=== PATIENT | male | born 1970 | race Caucasian/White ===

== ENCOUNTER 2017-07-28 08:36 | Inpatient (IN) | payer OTHER ==
[2017-07-28 08:41] VITALS: BMI 25.0
[2017-07-28] MEDS ORDERED: NICOTINE POLACRILEX 2 MG GUM BUC PRN (10:56)
[2017-07-28] MEDS ORDERED: guaiFENesin/D-METHORPHAN HB 10 ML UNIT-DOSE CUPS PO PRN (10:56)
[2017-07-28] MEDS ORDERED: P-EPHED 60MG/TRIPROLIDI 2.5MG TABLET PO PRN (10:56)
[2017-07-28] MEDS ORDERED: chlordiazePOXIDE HCL 25 MG CAPSULE PO PRN (10:56)
[2017-07-28] MEDS ORDERED: MAGNESIUM CITRATE 300 ML BOTTLE PO PRN (10:56)
[2017-07-28] MEDS ORDERED: LOPERAMIDE HCL 2 MG CAPSULE PO PRN (10:56)
[2017-07-28] MEDS ORDERED: MAG HYDROX/AL HYDROX/SIMETH 30 ML UNIT-DOSE CUP PO PRN (10:56)
[2017-07-28] MEDS ORDERED: ACETAMINOPHEN 325 MG TABLET (FP) PO PRN (10:56)
[2017-07-28] MEDS ORDERED: MAGNESIUM HYDROX 2400MG/30ML ORAL SUSPENSION 30 ML CUP PO PRN (10:56)
[2017-07-28] MEDS ORDERED: chlordiazePOXIDE HCL 25 MG CAPSULE PO ONE (10:56)
[2017-07-28] MEDS ORDERED: IBUPROFEN 400 MG TABLET (FP) PO PRN (10:56)
[2017-07-28] MEDS ORDERED: MENTHOL/PHENOL 1 EACH UD MM PRN (10:56)
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
[2017-07-28] MEDS: GABAPENTIN 300 MG CAPSULE (FP) PO SCH ×2 (14:45→22:37)
[2017-07-28] MEDS: chlordiazePOXIDE HCL 25 MG CAPSULE PO SCH ×3 (14:46→22:37)
[2017-07-28] MEDS: NICOTINE 21 MG/24 HOURS TOPICAL PATCH TD SCH (14:46)
[2017-07-28 19:12] LABS: URINE APPEARANCE CLEAR; URINE BILIRUBIN NEGATIVE (NEGATIVE); URINE BLOOD 1+ (NEGATIVE); URINE COLOR YELLOW; URINE GLUCOSE (UA) NEGATIVE (NEGATIVE); URINE KETONE NEGATIVE (NEGATIVE); URINE LEUK ESTERASE TRACE (NEGATIVE); URINE NITRITE NEGATIVE (NEGATIVE); URINE PROTEIN NEGATIVE (NEGATIVE); URINE UROBILINOGEN NEGATIVE mg/dL (0.2-1.0)
[2017-07-28 19:15] LABS: URINE MUCUS RARE; URINE RBC <1 /hpf (0-3); URINE WBC 13 /hpf (3-5)
[2017-07-28 21:15] LABS: URINE LEUK ESTERASE NEGATIVE (NEGATIVE)
[2017-07-28] MEDS: hydrOXYzine PAMOATE 50 MG CAPSULE (FP) PO PRN (22:37)
[2017-07-28] MEDS: THIAMINE HCL 100 MG TABLET (FP) PO SCH (22:37)
[2017-07-29] MEDS: chlordiazePOXIDE HCL 25 MG CAPSULE PO SCH ×4 (05:29→22:44)
[2017-07-29] MEDS: GABAPENTIN 300 MG CAPSULE (FP) PO SCH ×3 (05:32→22:44)
[2017-07-29 10:42] LABS: MCH 30.8 pg (25.7-33.7); MCHC 32.9 g/dl (32.0-35.9); MEAN CELL VOLUME 93.5 fl (80-96); MEAN PLT VOLUME 9.6 fl (7.5-11.1); PLATELET COUNT 128 K/MM3 (134-434); RDW 14.1 % (11.9-15.9)
[2017-07-29] MEDS: PRENATAL VITAMINS W/ FOLIC ACID TABLET (FP) PO SCH (10:47)
[2017-07-29] MEDS: NICOTINE 21 MG/24 HOURS TOPICAL PATCH TD SCH (10:47)
[2017-07-29 10:59] LABS: ALBUMIN 3.6 g/dl (3.4-5.0); ANION GAP 7 (8-16); CALCIUM 8.5 mg/dL (8.5-10.1); CO2 31 mmol/L (21-32); GLUCOSE,RANDOM 97 mg/dL (74-106)
[2017-07-29 11:03] LABS: ALK PHOS 126 U/L (45-117); BILIRUBIN,TOTAL 0.8 mg/dL (0.2-1.0); CREATININE 0.6 mg/dL (0.7-1.3); SGOT/AST 104 U/L (15-37); SGPT/ALT 111 U/L (12-78); TOT PROT 6.6 g/dl (6.4-8.2)
[2017-07-29 11:40] LABS: HIV 1 & 2 AB NEGATIVE; HIV 1 AGp24 NEGATIVE
[2017-07-29] MEDS ORDERED: POTASSIUM CHLORIDE TABS 20 MEQ TABLET.ER (FP) PO ONE (12:46)
--- NOTE | 2017-07-29 12:48 | PN ---
S CIWA - CIWA Score Nausea/Vomitin-No Nausea/No Vomiting Muscle Tremors: 4-Moderate,w/Arms Extend Anxiety: 3 Agitation: 3 Paroxysmal Sweats: 3 Orientation: 0-Oriented Tacttile Disturbances: 2-Mild Itch/Numbness/Burn Auditory Disturbances: 0-None Visual Disturbances: 0-None Headache: 3-Moderate CIWA-Ar Total Score: 18 BHS Progress Note (SOAP) Subjective: Diarrhea, Tremors, H/A, Sweating. Objective: PT. A & O X 3. NO ACUTE DISTRESS. PT. DENIES CHEST PAIN. 07/29/17 12:44 Vital Signs Temperature 98.1 F 07/29/17 09:28 Pulse Rate 67 07/29/17 09:28 Respiratory Rate 20 07/29/17 09:28 Blood Pressure 139/87 07/29/17 09:28 O2 Sat by Pulse Oximetry (%) Laboratory Tests 07/28/17 07/29/17 07/29/17 18:00 07:00 07:00 WBC 6.0 RBC 4.23 Hgb 13.0 Hct 39.6 MCV 93.5 MCH 30.8 MCHC 32.9 RDW 14.1 Plt Count 128 L MPV 9.6 Sodium Potassium Chloride Carbon Dioxide Anion Gap BUN Creatinine Creat Clearance w eGFR Random Glucose Calcium Total Bilirubin AST ALT Alkaline Phosphatase Total Protein Albumin Urine Color Yellow Urine Appearance Clear Urine pH 5.0 Ur Specific [place] 1.019 Urine Protein Negative Urine Glucose (UA) Negative Urine Ketones Negative Urine Blood 1+ H Urine Nitrite Negative Urine Bilirubin Negative Urine Urobilinogen Negative Ur Leukocyte Esterase Negative Urine WBC (Auto) 13 Urine RBC (Auto) <1 Ur Epithelial Cells Rare Urine Mucus Rare RPR Titer HIV 1&2 Antibody Screen Negative HIV P24 Antigen Negative 07/29/17 07/29/17 07:00 07:00 WBC RBC Hgb Hct MCV MCH MCHC RDW Plt Count MPV Sodium 138 Potassium 3.1 L Chloride 100 Carbon Dioxide 31 Anion Gap 7 L BUN 13 Creatinine 0.6 L Creat Clearance w eGFR > 60 Random Glucose 97 Calcium 8.5 Total Bilirubin 0.8 AST 104 H ALT 111 H Alkaline Phosphatase 126 H Total Protein 6.6 Albumin 3.6 Urine Color Urine Appearance Urine pH Ur Specific [place] Urine Protein Urine Glucose (UA) Urine Ketones Urine Blood Urine Nitrite Urine Bilirubin Urine Urobilinogen Ur Leukocyte Esterase Urine WBC (Auto) Urine RBC (Auto) Ur Epithelial Cells Urine Mucus RPR Titer Nonreactive HIV 1&2 Antibody Screen HIV P24 Antigen LABS NOTED. Assessment: 07/29/17 12:44 WITHDRAWAL SYMPTOMS. HYPOKALEMIA. 07/29/17 12:48 Plan: CONTINUE DETOX. K-DUR, 20 MEQ PO X 1 NOW, THEN 20 MEQ PO BID AFTER. REPEAT UA AND HEPATIC FUNCTION PANEL (07/31/2017) FOR ADMISSION ABNORMALITIES. INCREASE DAILY PO FLUID INTAKE. PRN IMMODIUM FOR DIARRHEA.
--- NOTE | 2017-07-29 15:14 | EKG ---
Test Reason : Blood Pressure : / mmHG Vent. Rate : 064 BPM Atrial Rate : 064 BPM P-R Int : 144 ms QRS Dur : 114 ms QT Int : 424 ms P-R-T Axes : 009 068 058 degrees QTc Int : 437 ms NORMAL SINUS RHYTHM NORMAL ECG NO PREVIOUS ECGS AVAILABLE Confirmed by ABDON MCKEON MD ([id number]) on 07/29/2017 3:13:40 PM Referred By: Confirmed By:ABDON MCKEON MD
[2017-07-29] MEDS: POTASSIUM CHLORIDE TABS 20 MEQ TABLET.ER (FP) PO SCH (17:37)
[2017-07-29] MEDS: THIAMINE HCL 100 MG TABLET (FP) PO SCH (22:44)
[2017-07-29] MEDS: hydrOXYzine PAMOATE 50 MG CAPSULE (FP) PO PRN (22:44)
[2017-07-30] MEDS: GABAPENTIN 300 MG CAPSULE (FP) PO SCH ×3 (05:37→22:12)
[2017-07-30] MEDS: chlordiazePOXIDE HCL 25 MG CAPSULE PO SCH (05:37)
--- NOTE | 2017-07-30 09:04 | PN ---
[facility] CIWA - CIWA Score Nausea/Vomitin-No Nausea/No Vomiting Muscle Tremors: 3 Anxiety: 3 Agitation: 3 Paroxysmal Sweats: 1-Minimal Palms Moist Orientation: 0-Oriented Tacttile Disturbances: 0-None Auditory Disturbances: 0-None Visual Disturbances: 0-None Headache: 0-None Present CIWA-Ar Total Score: 10 S Progress Note (SOAP) Subjective: tremor anxiety agitation sweating Objective: 07/30/17 09:05 Vital Signs Temperature 97.6 F 07/30/17 06:35 Pulse Rate 59 L 07/30/17 06:35 Respiratory Rate 20 07/30/17 06:35 Blood Pressure 124/78 07/30/17 06:35 O2 Sat by Pulse Oximetry (%) Laboratory Last Values WBC 6.0 K/mm3 (4.0-10.0) 07/29/17 07:00 RBC 4.23 M/mm3 (4.00-5.60) 07/29/17 07:00 Hgb 13.0 GM/dL (11.7-16.9) 07/29/17 07:00 Hct 39.6 % (35.4-49) 07/29/17 07:00 MCV 93.5 fl (80-96) 07/29/17 07:00 MCH 30.8 pg (25.7-33.7) 07/29/17 07:00 MCHC 32.9 g/dl (32.0-35.9) 07/29/17 07:00 RDW 14.1 % (11.9-15.9) 07/29/17 07:00 Plt Count 128 K/MM3 (134-434) L 07/29/17 07:00 MPV 9.6 fl (7.5-11.1) 07/29/17 07:00 Sodium 138 mmol/L (136-145) 07/29/17 07:00 Potassium 3.1 mmol/L (3.5-5.1) L 07/29/17 07:00 Chloride 100 mmol/L (98-107) 07/29/17 07:00 Carbon Dioxide 31 mmol/L (21-32) 07/29/17 07:00 Anion Gap 7 (8-16) L 07/29/17 07:00 BUN 13 mg/dL (7-18) 07/29/17 07:00 Creatinine 0.6 mg/dL (0.7-1.3) L 07/29/17 07:00 Creat Clearance w eGFR > 60 (>60) 07/29/17 07:00 Random Glucose 97 mg/dL (74-106) 07/29/17 07:00 Calcium 8.5 mg/dL (8.5-10.1) 07/29/17 07:00 Total Bilirubin 0.8 mg/dL (0.2-1.0) 07/29/17 07:00 AST 104 U/L (15-37) H 07/29/17 07:00 ALT 111 U/L (12-78) H 07/29/17 07:00 Alkaline Phosphatase 126 U/L (45-117) H 07/29/17 07:00 Total Protein 6.6 g/dl (6.4-8.2) 07/29/17 07:00 Albumin 3.6 g/dl (3.4-5.0) 07/29/17 07:00 Urine Color Yellow 07/28/17 18:00 Urine Appearance Clear 07/28/17 18:00 Urine pH 5.0 (5.0-8.0) 07/28/17 18:00 Ur Specific [place] 1.019 (1.001-1.035) 07/28/17 18:00 Urine Protein Negative (NEGATIVE) 07/28/17 18:00 Urine Glucose (UA) Negative (NEGATIVE) 07/28/17 18:00 Urine Ketones Negative (NEGATIVE) 07/28/17 18:00 Urine Blood 1+ (NEGATIVE) H 07/28/17 18:00 Urine Nitrite Negative (NEGATIVE) 07/28/17 18:00 Urine Bilirubin Negative (NEGATIVE) 07/28/17 18:00 Urine Urobilinogen Negative mg/dL (0.2-1.0) 07/28/17 18:00 Ur Leukocyte Esterase Negative (NEGATIVE) 07/28/17 18:00 Urine WBC (Auto) 13 /hpf (3-5) 07/28/17 18:00 Urine RBC (Auto) <1 /hpf (0-3) 07/28/17 18:00 Ur Epithelial Cells Rare /HPF (FEW) 07/28/17 18:00 Urine Mucus Rare 07/28/17 18:00 RPR Titer Nonreactive (NONREACTIVE) 07/29/17 07:00 HIV 1&2 Antibody Screen Negative 07/29/17 07:00 HIV P24 Antigen Negative 07/29/17 07:00 lab noted Assessment: 07/30/17 09:05 withdrawal sx Plan: continue detox
[2017-07-30 10:33] LABS: URINE APPEARANCE CLEAR; URINE BILIRUBIN NEGATIVE (NEGATIVE); URINE BLOOD NEGATIVE (NEGATIVE); URINE COLOR STRAW; URINE GLUCOSE (UA) 1+ (NEGATIVE); URINE KETONE NEGATIVE (NEGATIVE); URINE LEUK ESTERASE TRACE (NEGATIVE); URINE NITRITE NEGATIVE (NEGATIVE); URINE PROTEIN NEGATIVE (NEGATIVE); URINE UROBILINOGEN NEGATIVE mg/dL (0.2-1.0)
[2017-07-30] MEDS: PRENATAL VITAMINS W/ FOLIC ACID TABLET (FP) PO SCH (10:48)
[2017-07-30] MEDS: NICOTINE 21 MG/24 HOURS TOPICAL PATCH TD SCH (10:48)
[2017-07-30] MEDS: POTASSIUM CHLORIDE TABS 20 MEQ TABLET.ER (FP) PO SCH ×2 (10:48→17:02)
[2017-07-30] MEDS: chlordiazePOXIDE 5 MG CAPSULE PO SCH ×3 (10:49→22:12)
[2017-07-30 11:03] LABS: URINE RBC 1 /hpf (0-3); URINE WBC 11 /hpf (3-5)
[2017-07-30 18:41] LABS: URINE LEUK ESTERASE TRACE (NEGATIVE)
[2017-07-30] MEDS: hydrOXYzine PAMOATE 50 MG CAPSULE (FP) PO PRN (20:00)
[2017-07-30] MEDS: THIAMINE HCL 100 MG TABLET (FP) PO SCH (22:12)
[2017-07-31] MEDS: GABAPENTIN 300 MG CAPSULE (FP) PO SCH ×3 (06:08→22:12)
[2017-07-31] MEDS: chlordiazePOXIDE 5 MG CAPSULE PO SCH (06:08)
[2017-07-31 10:29] LABS: ALK PHOS 193 U/L (45-117); BILIRUBIN,DIRECT < 0.2 mg/dL (0.0-0.2); BILIRUBIN,TOTAL 0.5 mg/dL (0.2-1.0); SGOT/AST 396 U/L (15-37); TOT PROT 7.6 g/dl (6.4-8.2)
[2017-07-31] MEDS: PRENATAL VITAMINS W/ FOLIC ACID TABLET (FP) PO SCH (10:42)
[2017-07-31] MEDS: chlordiazePOXIDE HCL 10 MG CAPSULE PO SCH ×3 (10:42→22:12)
[2017-07-31] MEDS: POTASSIUM CHLORIDE TABS 20 MEQ TABLET.ER (FP) PO SCH ×2 (10:42→17:29)
[2017-07-31] MEDS: NICOTINE 21 MG/24 HOURS TOPICAL PATCH TD SCH (10:43)
[2017-07-31 10:45] LABS: SGPT/ALT 454 U/L (12-78)
--- NOTE | 2017-07-31 12:10 | PN ---
BHS Progress Note (SOAP) Subjective: ANXIETY,SWEATS,TREMORS,MUSCLE ACHES, INTERMITTENT SLEEP. Objective: 07/31/17 12:13 Vital Signs Temperature 97.2 F L 07/31/17 09:55 Pulse Rate 89 07/31/17 09:55 Respiratory Rate 18 07/31/17 09:55 Blood Pressure 113/72 07/31/17 09:55 O2 Sat by Pulse Oximetry (%) Laboratory Last Values WBC 6.0 K/mm3 (4.0-10.0) 07/29/17 07:00 RBC 4.23 M/mm3 (4.00-5.60) 07/29/17 07:00 Hgb 13.0 GM/dL (11.7-16.9) 07/29/17 07:00 Hct 39.6 % (35.4-49) 07/29/17 07:00 MCV 93.5 fl (80-96) 07/29/17 07:00 MCH 30.8 pg (25.7-33.7) 07/29/17 07:00 MCHC 32.9 g/dl (32.0-35.9) 07/29/17 07:00 RDW 14.1 % (11.9-15.9) 07/29/17 07:00 Plt Count 128 K/MM3 (134-434) L 07/29/17 07:00 MPV 9.6 fl (7.5-11.1) 07/29/17 07:00 Sodium 138 mmol/L (136-145) 07/29/17 07:00 Potassium 3.1 mmol/L (3.5-5.1) L 07/29/17 07:00 Chloride 100 mmol/L (98-107) 07/29/17 07:00 Carbon Dioxide 31 mmol/L (21-32) 07/29/17 07:00 Anion Gap 7 (8-16) L 07/29/17 07:00 BUN 13 mg/dL (7-18) 07/29/17 07:00 Creatinine 0.6 mg/dL (0.7-1.3) L 07/29/17 07:00 Creat Clearance w eGFR > 60 (>60) 07/29/17 07:00 Random Glucose 97 mg/dL (74-106) 07/29/17 07:00 Calcium 8.5 mg/dL (8.5-10.1) 07/29/17 07:00 Total Bilirubin 0.5 mg/dL (0.2-1.0) D 07/31/17 07:00 Direct Bilirubin < 0.2 mg/dL (0.0-0.2) 07/31/17 07:00 AST 396 U/L (15-37) H D 07/31/17 07:00 ALT 454 U/L (12-78) H D 07/31/17 07:00 Alkaline Phosphatase 193 U/L (45-117) H D 07/31/17 07:00 Total Protein 7.6 g/dl (6.4-8.2) 07/31/17 07:00 Albumin 4.0 g/dl (3.4-5.0) 07/31/17 07:00 Urine Color Straw 07/30/17 08:00 Urine Appearance Clear 07/30/17 08:00 Urine pH 7.0 (5.0-8.0) D 07/30/17 08:00 Ur Specific [place] 1.010 (1.001-1.035) 07/30/17 08:00 Urine Protein Negative (NEGATIVE) 07/30/17 08:00 Urine Glucose (UA) 1+ (NEGATIVE) H 07/30/17 08:00 Urine Ketones Negative (NEGATIVE) 07/30/17 08:00 Urine Blood Negative (NEGATIVE) 07/30/17 08:00 Urine Nitrite Negative (NEGATIVE) 07/30/17 08:00 Urine Bilirubin Negative (NEGATIVE) 07/30/17 08:00 Urine Urobilinogen Negative mg/dL (0.2-1.0) 07/30/17 08:00 Ur Leukocyte Esterase Trace (NEGATIVE) H 07/30/17 08:00 Urine WBC (Auto) 11 /hpf (3-5) 07/30/17 08:00 Urine RBC (Auto) 1 /hpf (0-3) 07/30/17 08:00 Ur Epithelial Cells Rare /HPF (FEW) 07/30/17 08:00 Urine Mucus Rare 07/28/17 18:00 RPR Titer Nonreactive (NONREACTIVE) 07/29/17 07:00 HIV 1&2 Antibody Screen Negative 07/29/17 07:00 HIV P24 Antigen Negative 07/29/17 07:00 REPEAT ELEVATED LIVER ENZYMES-NOT IMPROVED. PT WILL FOLLOW UP WITH PCP AT [facility] WITH COPY OF LAB RESULT. ABNORMAL UA Assessment: 07/31/17 12:13 WITHDRAWAL SX Plan: CONTINUE DETOX
[2017-07-31] MEDS ORDERED: CYCLOBENZAPRINE HCL 10 MG TABLET (FP) PO SCH (14:00)
[2017-07-31] MEDS: CYCLOBENZAPRINE HCL 5 MG TABLET PO PRN (14:39)
[2017-07-31] MEDS: THIAMINE HCL 100 MG TABLET (FP) PO SCH (22:12)
[2017-07-31] MEDS: hydrOXYzine PAMOATE 50 MG CAPSULE (FP) PO PRN (22:12)
[2017-08-01] MEDS: chlordiazePOXIDE HCL 10 MG CAPSULE PO SCH (06:08)
[2017-08-01] MEDS: GABAPENTIN 300 MG CAPSULE (FP) PO SCH (06:08)
[2017-08-01] MEDS: CYCLOBENZAPRINE HCL 5 MG TABLET PO PRN (06:10)
[2017-08-01] MEDS: POTASSIUM CHLORIDE TABS 20 MEQ TABLET.ER (FP) PO SCH (09:13)
[2017-08-01] MEDS: PRENATAL VITAMINS W/ FOLIC ACID TABLET (FP) PO SCH (09:13)
[2017-08-01] MEDS: NICOTINE 21 MG/24 HOURS TOPICAL PATCH TD SCH (09:13)
--- NOTE | 2017-08-01 09:15 | PN ---
BHS Progress Note Note: DETOX COMPLETED. ALERT O X 3. NAD. PT WANTS TO GO TO REHAB AND LIKELY TO GO TO [facility] OR [facility] PENDING BED AVAILABILITY TODAY.
[2017-08-01 09:38] VITALS: BP 114/73; PULSE 80; TEMP 97.3
--- NOTE | 2017-08-01 10:59 | DS ---
[facility] Detox Discharge Summary Admission Date: 07/28/17 Discharge Date: 08/01/17 - History Present History: Alcohol Dependence - Physical Exam Results Vital Signs: Vital Signs Temperature 97.3 F L 08/01/17 09:38 Pulse Rate 80 08/01/17 09:38 Respiratory Rate 18 08/01/17 09:38 Blood Pressure 114/73 08/01/17 09:38 O2 Sat by Pulse Oximetry (%) Pertinent Admission Physical Exam Findings: WITHDRAWAL SX Laboratory Last Values WBC 6.0 K/mm3 (4.0-10.0) 07/29/17 07:00 RBC 4.23 M/mm3 (4.00-5.60) 07/29/17 07:00 Hgb 13.0 GM/dL (11.7-16.9) 07/29/17 07:00 Hct 39.6 % (35.4-49) 07/29/17 07:00 MCV 93.5 fl (80-96) 07/29/17 07:00 MCH 30.8 pg (25.7-33.7) 07/29/17 07:00 MCHC 32.9 g/dl (32.0-35.9) 07/29/17 07:00 RDW 14.1 % (11.9-15.9) 07/29/17 07:00 Plt Count 128 K/MM3 (134-434) L 07/29/17 07:00 MPV 9.6 fl (7.5-11.1) 07/29/17 07:00 Sodium 138 mmol/L (136-145) 07/29/17 07:00 Potassium 3.1 mmol/L (3.5-5.1) L 07/29/17 07:00 Chloride 100 mmol/L (98-107) 07/29/17 07:00 Carbon Dioxide 31 mmol/L (21-32) 07/29/17 07:00 Anion Gap 7 (8-16) L 07/29/17 07:00 BUN 13 mg/dL (7-18) 07/29/17 07:00 Creatinine 0.6 mg/dL (0.7-1.3) L 07/29/17 07:00 Creat Clearance w eGFR > 60 (>60) 07/29/17 07:00 Random Glucose 97 mg/dL (74-106) 07/29/17 07:00 Calcium 8.5 mg/dL (8.5-10.1) 07/29/17 07:00 Total Bilirubin 0.5 mg/dL (0.2-1.0) D 07/31/17 07:00 Direct Bilirubin < 0.2 mg/dL (0.0-0.2) 07/31/17 07:00 AST 396 U/L (15-37) H D 07/31/17 07:00 ALT 454 U/L (12-78) H D 07/31/17 07:00 Alkaline Phosphatase 193 U/L (45-117) H D 07/31/17 07:00 Total Protein 7.6 g/dl (6.4-8.2) 07/31/17 07:00 Albumin 4.0 g/dl (3.4-5.0) 07/31/17 07:00 Urine Color Straw 07/30/17 08:00 Urine Appearance Clear 07/30/17 08:00 Urine pH 7.0 (5.0-8.0) D 07/30/17 08:00 Ur Specific [place] 1.010 (1.001-1.035) 07/30/17 08:00 Urine Protein Negative (NEGATIVE) 07/30/17 08:00 Urine Glucose (UA) 1+ (NEGATIVE) H 07/30/17 08:00 Urine Ketones Negative (NEGATIVE) 07/30/17 08:00 Urine Blood Negative (NEGATIVE) 07/30/17 08:00 Urine Nitrite Negative (NEGATIVE) 07/30/17 08:00 Urine Bilirubin Negative (NEGATIVE) 07/30/17 08:00 Urine Urobilinogen Negative mg/dL (0.2-1.0) 07/30/17 08:00 Ur Leukocyte Esterase Trace (NEGATIVE) H 07/30/17 08:00 Urine WBC (Auto) 11 /hpf (3-5) 07/30/17 08:00 Urine RBC (Auto) 1 /hpf (0-3) 07/30/17 08:00 Ur Epithelial Cells Rare /HPF (FEW) 07/30/17 08:00 Urine Mucus Rare 07/28/17 18:00 RPR Titer Nonreactive (NONREACTIVE) 07/29/17 07:00 HIV 1&2 Antibody Screen Negative 07/29/17 07:00 HIV P24 Antigen Negative 07/29/17 07:00 COPY OF LAB RESULTS GIVEN TO PATIENT TO FOLLOW UP WITH HIS PCP AT [facility]. - Treatment Hospital Course: Detox Protocol Followed, Detoxed Safely, Responded well, Discharged Condition Good, Rehab Referral Accepted - Medication Discharge Medications: Ambulatory Orders Gabapentin [Neurontin -] 300 mg PO Q8H #90 capsule 08/01/17 - Diagnosis (1) Alcohol dependence with uncomplicated withdrawal Current Visit: Yes Status: Acute (2) Neuropathy Current Visit: Yes Status: Chronic (3) History of scoliosis Current Visit: Yes Status: Chronic (4) History of fusion of spine for scoliosis Current Visit: Yes Status: Chronic - AMA Did Patient Leave Against Medical Advice: No
== END 2017-08-01 12:35 | disposition home or self-care (01) | DRG 48 ==
LOC: YASAS 08:36 → Y3N 13:46
PROVIDERS: ADMIT Internal Medicine; ATTEND Internal Medicine
PROC: HZ2ZZZZ Detoxification Services for Substance Abuse Treatment (ICD-10-PCS; principal; 2017-07-28)
DX: G62.9 Polyneuropathy, unspecified (principal); E78.00 Pure hypercholesterolemia, unspecified; Z87.39 Personal history of other diseases of the musculoskeletal system and connective tissue; Z98.1 Arthrodesis status; M41.9 Scoliosis, unspecified
CPT/HCPCS: 36415; 80053; 80076; 81003; 81015; 85027; 86593; 87389; 93005; 93010

== ENCOUNTER 2018-04-12 08:05 | Inpatient (IN) | payer OTHER ==
[2018-04-12 09:02] VITALS: BMI 24.3
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
[2018-04-12] MEDS ORDERED: MAGNESIUM HYDROX 2400MG/30ML ORAL SUSPENSION 30 ML CUP PO PRN (09:30)
[2018-04-12] MEDS ORDERED: MAG HYDROX/AL HYDROX/SIMETH 30 ML UNIT-DOSE CUP PO PRN (09:30)
[2018-04-12] MEDS ORDERED: MENTHOL/PHENOL 1 EACH UD MM PRN (09:30)
[2018-04-12] MEDS ORDERED: guaiFENesin/D-METHORPHAN HB 10 ML UNIT-DOSE CUPS PO PRN (09:30)
[2018-04-12] MEDS ORDERED: ACETAMINOPHEN 325 MG TABLET (FP) PO PRN (09:30)
[2018-04-12] MEDS ORDERED: LOPERAMIDE HCL 2 MG CAPSULE PO PRN (09:30)
[2018-04-12] MEDS ORDERED: hydrOXYzine PAMOATE 25 MG CAPSULE (FP) PO PRN (09:30)
[2018-04-12] MEDS ORDERED: MAGNESIUM CITRATE 300 ML BOTTLE PO PRN (09:30)
[2018-04-12] MEDS ORDERED: P-EPHED 60MG/TRIPROLIDI 2.5MG TABLET PO PRN (09:30)
[2018-04-12] MEDS ORDERED: IBUPROFEN 400 MG TABLET (FP) PO PRN (09:30)
[2018-04-12] MEDS ORDERED: chlordiazePOXIDE HCL 25 MG CAPSULE PO PRN (09:30)
[2018-04-12] MEDS ORDERED: chlordiazePOXIDE HCL 25 MG CAPSULE PO ONE (11:00)
[2018-04-12] MEDS: GABAPENTIN 300 MG CAPSULE (FP) PO SCH ×2 (12:55→17:54)
[2018-04-12] MEDS: PRENATAL VITAMINS W/ FOLIC ACID TABLET (FP) PO SCH (12:58)
[2018-04-12] MEDS: NICOTINE 21 MG/24 HOURS TOPICAL PATCH TD SCH (13:01)
[2018-04-12] MEDS: chlordiazePOXIDE HCL 25 MG CAPSULE PO SCH ×2 (17:54→22:26)
--- NOTE | 2018-04-12 18:49 | EKG ---
Test Reason : Blood Pressure : / mmHG Vent. Rate : 057 BPM Atrial Rate : 057 BPM P-R Int : 180 ms QRS Dur : 098 ms QT Int : 450 ms P-R-T Axes : 065 073 075 degrees QTc Int : 438 ms SINUS BRADYCARDIA NONSPECIFIC T WAVE ABNORMALITY ABNORMAL ECG WHEN COMPARED WITH ECG OF 28-JUL-2017 16:11, NO SIGNIFICANT CHANGE WAS FOUND Confirmed by EDIE MACKAY MD ([id number]) on 04/12/2018 6:49:12 PM Referred By: Confirmed By:EDIE MACKAY MD
[2018-04-12] MEDS: THIAMINE HCL 100 MG TABLET (FP) PO SCH (22:25)
[2018-04-13] MEDS: GABAPENTIN 300 MG CAPSULE (FP) PO SCH ×4 (04:20→22:49)
[2018-04-13] MEDS: chlordiazePOXIDE HCL 25 MG CAPSULE PO SCH ×4 (05:28→22:49)
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
[2018-04-13] MEDS: NICOTINE 21 MG/24 HOURS TOPICAL PATCH TD SCH (10:24)
[2018-04-13] MEDS: PRENATAL VITAMINS W/ FOLIC ACID TABLET (FP) PO SCH (10:25)
[2018-04-13] MEDS ORDERED: ZOLPIDEM TARTRATE 10 MG TABLET (PARK CARE ONLY) PO PRN (10:35)
[2018-04-13 10:36] LABS: MEAN CELL VOLUME 92.5 fl (80-96); MEAN PLT VOLUME 8.5 fl (7.5-11.1); PLATELET COUNT 202 K/MM3 (134-434); RBC 4.41 M/mm3 (4.00-5.60)
[2018-04-13 10:38] LABS: HEMATOCRIT 40.8 % (35.4-49); HEMOGLOBIN 13.2 GM/dL (11.7-16.9); MCHC 32.4 g/dl (32.0-35.9); RDW 14.6 % (11.9-15.9); WHITE BLOOD COUNT 5.9 K/mm3 (4.0-10.0)
[2018-04-13 10:55] LABS: ALBUMIN 3.7 g/dl (3.4-5.0); ANION GAP 9 MMOL/L (8-16); BLOOD UREA NITROGEN 9 mg/dL (7-18); CALCIUM 7.7 mg/dL (8.5-10.1); CHLORIDE 107 mmol/L (98-107); CO2 28 mmol/L (21-32); GLUCOSE,RANDOM 95 mg/dL (74-106); POTASSIUM 3.7 mmol/L (3.5-5.1); SODIUM 144 mmol/L (136-145)
[2018-04-13 10:58] LABS: BILIRUBIN,TOTAL 0.3 mg/dL (0.2-1.0); CREATININE 0.7 mg/dL (0.7-1.3); SGOT/AST 114 U/L (15-37); SGPT/ALT 67 U/L (12-78); TOT PROT 7.5 g/dl (6.4-8.2)
[2018-04-13 10:59] LABS: ALK PHOS 118 U/L (45-117)
[2018-04-13 15:04] LABS: RPR REACTIVE 1:2 (NONREACTIVE)
[2018-04-13 15:07] LABS: TREPONEMA ANTIBODY REACTIVE (NONREACTIVE)
--- NOTE | 2018-04-13 16:02 | PN ---
S CIWA - CIWA Score Nausea/Vomitin Muscle Tremors: 4-Moderate,w/Arms Extend Anxiety: 4-Mod. Anxious/Guarded Agitation: 3 Paroxysmal Sweats: 3 Orientation: 0-Oriented Tacttile Disturbances: 0-None Auditory Disturbances: 0-None Visual Disturbances: 0-None Headache: 1-Very Mild CIWA-Ar Total Score: 18 BHS Progress Note (SOAP) Subjective: Stomach ache, nausea, tremor, interrupted sleep Objective: 04/13/18 16:00 Last Vital Signs Temp Pulse Resp BP Pulse Ox 96.7 F L 61 16 127/77 04/13/18 14:47 04/13/18 14:47 04/13/18 14:47 04/13/18 14:47 Laboratory Tests 04/12/18 04/12/18 04/13/18 10:15 12:45 06:00 WBC 5.9 RBC 4.41 Hgb 13.2 Hct 40.8 MCV 92.5 MCH 30.0 MCHC 32.4 RDW 14.6 Plt Count 202 D MPV 8.5 D Sodium Potassium Chloride Carbon Dioxide Anion Gap BUN Creatinine Creat Clearance w eGFR Random Glucose Calcium Total Bilirubin AST ALT Alkaline Phosphatase Total Protein Albumin Urine Color Cancelled Urine Appearance Cancelled Urine pH Cancelled Ur Specific [place] Cancelled Urine Protein Cancelled Urine Glucose (UA) Cancelled Urine Ketones Cancelled Urine Blood Cancelled Urine Nitrite Cancelled Urine Bilirubin Cancelled Urine Urobilinogen Cancelled Ur Leukocyte Esterase Cancelled RPR Titer T.pallidum Ab (MHA) HIV 1&2 Antibody Screen Negative HIV P24 Antigen Negative 04/13/18 04/13/18 06:00 06:00 WBC RBC Hgb Hct MCV MCH MCHC RDW Plt Count MPV Sodium 144 Potassium 3.7 Chloride 107 Carbon Dioxide 28 Anion Gap 9 BUN 9 Creatinine 0.7 Creat Clearance w eGFR > 60 Random Glucose 95 Calcium 7.7 L Total Bilirubin 0.3 AST 114 H D ALT 67 D Alkaline Phosphatase 118 H Total Protein 7.5 Albumin 3.7 Urine Color Urine Appearance Urine pH Ur Specific [place] Urine Protein Urine Glucose (UA) Urine Ketones Urine Blood Urine Nitrite Urine Bilirubin Urine Urobilinogen Ur Leukocyte Esterase RPR Titer Reactive 1:2 H D T.pallidum Ab (MHA) Reactive HIV 1&2 Antibody Screen HIV P24 Antigen Labs reviewed Assessment: 04/13/18 16:00 Withdrawal symptoms Plan: Continue detox Patient reported he was treated for syphilis in 1987 and denies any present s/ sx of syphilis
[2018-04-13 20:09] LABS: URINE APPEARANCE CLEAR; URINE BILIRUBIN NEGATIVE (<2.0 mg/dL); URINE COLOR YELLOW; URINE GLUCOSE (UA) NEGATIVE (NEGATIVE); URINE KETONE NEGATIVE (NEGATIVE); URINE LEUK ESTERASE TRACE (NEGATIVE); URINE NITRITE NEGATIVE (NEGATIVE); URINE PROTEIN NEGATIVE (NEGATIVE); URINE UROBILINOGEN NEGATIVE mg/dL (0.2-1.0)
[2018-04-13 20:16] LABS: EPI CELLS RARE /HPF (FEW); URINE MUCUS RARE
[2018-04-13] MEDS: THIAMINE HCL 100 MG TABLET (FP) PO SCH (22:49)
[2018-04-13] MEDS: MELATONIN 5 MG TABLETS PO PRN (22:49)
[2018-04-14] MEDS: chlordiazePOXIDE HCL 25 MG CAPSULE PO SCH ×2 (05:45→10:20)
[2018-04-14] MEDS: GABAPENTIN 300 MG CAPSULE (FP) PO SCH ×3 (05:45→22:24)
[2018-04-14] MEDS: PRENATAL VITAMINS W/ FOLIC ACID TABLET (FP) PO SCH (10:20)
[2018-04-14] MEDS: NICOTINE 21 MG/24 HOURS TOPICAL PATCH TD SCH (10:20)
--- NOTE | 2018-04-14 11:56 | PN ---
[facility] CIWA - CIWA Score Nausea/Vomitin-No Nausea/No Vomiting Muscle Tremors: 4-Moderate,w/Arms Extend Anxiety: 4-Mod. Anxious/Guarded Agitation: 4-Moderately Restless Paroxysmal Sweats: 1-Minimal Palms Moist Orientation: 0-Oriented Tacttile Disturbances: 0-None Auditory Disturbances: 0-None Visual Disturbances: 0-None Headache: 0-None Present CIWA-Ar Total Score: 13 S Progress Note (SOAP) Subjective: ANXIETY,FATIGUE,HOT/COLD CHILLS. Objective: 04/14/18 11:54 Vital Signs 04/14/18 04/14/18 04/14/18 06:12 06:30 09:26 Temperature 97.4 F L 97.7 F Pulse Rate 53 L 90 Respiratory 18 18 20 Rate Blood Pressure 122/79 127/88 Laboratory Tests 04/12/18 04/12/18 04/13/18 10:15 12:45 06:00 WBC 5.9 RBC 4.41 Hgb 13.2 Hct 40.8 MCV 92.5 MCH 30.0 MCHC 32.4 RDW 14.6 Plt Count 202 D MPV 8.5 D Sodium Potassium Chloride Carbon Dioxide Anion Gap BUN Creatinine Creat Clearance w eGFR Random Glucose Calcium Total Bilirubin AST ALT Alkaline Phosphatase Total Protein Albumin Urine Color Cancelled Urine Appearance Cancelled Urine pH Cancelled Ur Specific [place] Cancelled Urine Protein Cancelled Urine Glucose (UA) Cancelled Urine Ketones Cancelled Urine Blood Cancelled Urine Nitrite Cancelled Urine Bilirubin Cancelled Urine Urobilinogen Cancelled Ur Leukocyte Esterase Cancelled Urine WBC (Auto) Urine RBC (Auto) Ur Epithelial Cells Urine Mucus RPR Titer T.pallidum Ab (A) HIV 1&2 Antibody Screen Negative HIV P24 Antigen Negative 04/13/18 04/13/18 04/13/18 06:00 06:00 15:46 WBC RBC Hgb Hct MCV MCH MCHC RDW Plt Count MPV Sodium 144 Potassium 3.7 Chloride 107 Carbon Dioxide 28 Anion Gap 9 BUN 9 Creatinine 0.7 Creat Clearance w eGFR > 60 Random Glucose 95 Calcium 7.7 L Total Bilirubin 0.3 AST 114 H D ALT 67 D Alkaline Phosphatase 118 H Total Protein 7.5 Albumin 3.7 Urine Color Yellow Urine Appearance Clear Urine pH 7.0 Ur Specific [place] 1.014 Urine Protein Negative Urine Glucose (UA) Negative Urine Ketones Negative Urine Blood Negative Urine Nitrite Negative Urine Bilirubin Negative Urine Urobilinogen Negative Ur Leukocyte Esterase Trace Urine WBC (Auto) 13 Urine RBC (Auto) <1 Ur Epithelial Cells Rare Urine Mucus Rare RPR Titer Reactive 1:2 H D T.pallidum Ab (MHA) Reactive HIV 1&2 Antibody Screen HIV P24 Antigen LABS NOTED Assessment: 04/14/18 11:55 WITHDRAWAL SX Plan: CONTINUE DETOX
[2018-04-14] MEDS: chlordiazePOXIDE 5 MG CAPSULE PO SCH ×2 (18:12→22:24)
[2018-04-14] MEDS: THIAMINE HCL 100 MG TABLET (FP) PO SCH (22:24)
[2018-04-14] MEDS: MELATONIN 5 MG TABLETS PO PRN (22:25)
[2018-04-15] MEDS: GABAPENTIN 300 MG CAPSULE (FP) PO SCH ×3 (05:44→22:20)
[2018-04-15] MEDS: chlordiazePOXIDE 5 MG CAPSULE PO SCH ×2 (05:44→10:30)
[2018-04-15] MEDS: PRENATAL VITAMINS W/ FOLIC ACID TABLET (FP) PO SCH (10:30)
[2018-04-15] MEDS: NICOTINE 21 MG/24 HOURS TOPICAL PATCH TD SCH (10:30)
--- NOTE | 2018-04-15 11:50 | PN ---
BHS Progress Note (SOAP) Subjective: ANXIETY,SWEATS,CHILLS,FATIGUE,INTERMITTENT SLEEP. PT WAS OOB ON HALLWAY WITH STEADY GAIT. Objective: 04/15/18 11:49 Vital Signs 04/15/18 04/15/18 06:18 10:13 Temperature 97.5 F L 97.9 F Pulse Rate 56 L 69 Respiratory 18 18 Rate Blood Pressure 127/77 126/82 Laboratory Tests 04/12/18 04/12/18 04/13/18 10:15 12:45 06:00 WBC RBC Hgb Hct MCV MCH MCHC RDW Plt Count MPV Sodium Potassium Chloride Carbon Dioxide Anion Gap BUN Creatinine Creat Clearance w eGFR Random Glucose Calcium Total Bilirubin AST ALT Alkaline Phosphatase Total Protein Albumin Urine Color Cancelled Urine Appearance Cancelled Urine pH Cancelled Ur Specific [place] Cancelled Urine Protein Cancelled Urine Glucose (UA) Cancelled Urine Ketones Cancelled Urine Blood Cancelled Urine Nitrite Cancelled Urine Bilirubin Cancelled Urine Urobilinogen Cancelled Ur Leukocyte Esterase Cancelled Urine WBC (Auto) Urine RBC (Auto) Ur Epithelial Cells Urine Mucus RPR Titer T.pallidum Ab (MHA) Hep C Ab Diagnostic <0.1 Liver Fibrosis Interp HIV 1&2 Antibody Screen Negative HIV P24 Antigen Negative 04/13/18 04/13/18 04/13/18 06:00 06:00 06:00 WBC 5.9 RBC 4.41 Hgb 13.2 Hct 40.8 MCV 92.5 MCH 30.0 MCHC 32.4 RDW 14.6 Plt Count 202 D MPV 8.5 D Sodium 144 Potassium 3.7 Chloride 107 Carbon Dioxide 28 Anion Gap 9 BUN 9 Creatinine 0.7 Creat Clearance w eGFR > 60 Random Glucose 95 Calcium 7.7 L Total Bilirubin 0.3 AST 114 H D ALT 67 D Alkaline Phosphatase 118 H Total Protein 7.5 Albumin 3.7 Urine Color Urine Appearance Urine pH Ur Specific [place] Urine Protein Urine Glucose (UA) Urine Ketones Urine Blood Urine Nitrite Urine Bilirubin Urine Urobilinogen Ur Leukocyte Esterase Urine WBC (Auto) Urine RBC (Auto) Ur Epithelial Cells Urine Mucus RPR Titer Reactive 1:2 H D T.pallidum Ab (MHA) Reactive Hep C Ab Diagnostic Liver Fibrosis Interp HIV 1&2 Antibody Screen HIV P24 Antigen 04/13/18 15:46 WBC RBC Hgb Hct MCV MCH MCHC RDW Plt Count MPV Sodium Potassium Chloride Carbon Dioxide Anion Gap BUN Creatinine Creat Clearance w eGFR Random Glucose Calcium Total Bilirubin AST ALT Alkaline Phosphatase Total Protein Albumin Urine Color Yellow Urine Appearance Clear Urine pH 7.0 Ur Specific [place] 1.014 Urine Protein Negative Urine Glucose (UA) Negative Urine Ketones Negative Urine Blood Negative Urine Nitrite Negative Urine Bilirubin Negative Urine Urobilinogen Negative Ur Leukocyte Esterase Trace Urine WBC (Auto) 13 Urine RBC (Auto) <1 Ur Epithelial Cells Rare Urine Mucus Rare RPR Titer T.pallidum Ab (A) Hep C Ab Diagnostic Liver Fibrosis Interp HIV 1&2 Antibody Screen HIV P24 Antigen Assessment: 04/15/18 11:49 WITHDRAWAL SX Plan: CONTINUE DETOX INCREASE PO FLUIDS REPEAT UA TODAY.
[2018-04-15] MEDS: chlordiazePOXIDE HCL 10 MG CAPSULE PO SCH ×2 (17:59→22:19)
[2018-04-15] MEDS: THIAMINE HCL 100 MG TABLET (FP) PO SCH (22:19)
[2018-04-15] MEDS: MELATONIN 5 MG TABLETS PO PRN (22:20)
[2018-04-16] MEDS: chlordiazePOXIDE HCL 10 MG CAPSULE PO SCH (05:49)
[2018-04-16] MEDS: GABAPENTIN 300 MG CAPSULE (FP) PO SCH (05:49)
[2018-04-16 06:39] VITALS: BP 138/79; PULSE 56; TEMP 97.2
== END 2018-04-16 09:01 | disposition home or self-care (01) | DRG 775 ==
LOC: YASAS 08:05 → Y3N 10:38
PROVIDERS: ADMIT Surgery; ATTEND Surgery
PROC: HZ2ZZZZ Detoxification Services for Substance Abuse Treatment (ICD-10-PCS; principal; 2018-04-12)
DX: F10.230 Alcohol dependence with withdrawal, uncomplicated (principal); F12.90 Cannabis use, unspecified, uncomplicated; F17.213 Nicotine dependence, cigarettes, with withdrawal; F19.24 Other psychoactive substance dependence with psychoactive substance-induced mood disorder; F19.282 Other psychoactive substance dependence with psychoactive substance-induced sleep disorder; G62.9 Polyneuropathy, unspecified; K74.60 Unspecified cirrhosis of liver; Z98.1 Arthrodesis status; Z87.438 Personal history of other diseases of male genital organs
CPT/HCPCS: 36415; 80053; 81003; 81015; 85027; 86593; 86780; 86803; 87389; 93005; 93010

== ENCOUNTER 2019-06-01 16:09 | Inpatient (IN) | payer OTHER ==
[2019-06-01 18:10] VITALS: BMI 24.9
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
[2019-06-01] MEDS ORDERED: MAGNESIUM HYDROX 2400MG/30ML ORAL SUSPENSION 30 ML CUP PO PRN (21:32)
[2019-06-01] MEDS ORDERED: METHOCARBAMOL 500 MG TABLET PO PRN (21:32)
[2019-06-01] MEDS ORDERED: ACETAMINOPHEN 325 MG TABLET (FP) PO PRN ×2 (21:32)
[2019-06-01] MEDS ORDERED: BISMUTH SUBSALICYLATE 524 MG/30 ML UD PO PRN (21:32)
[2019-06-01] MEDS ORDERED: MENTHOL/PHENOL 1 EACH UD MM PRN (21:32)
[2019-06-01] MEDS ORDERED: chlordiazePOXIDE HCL 25 MG CAPSULE PO PRN (21:32)
[2019-06-01] MEDS ORDERED: MAGNESIUM CITRATE 300 ML BOTTLE PO PRN (21:32)
[2019-06-01] MEDS ORDERED: IBUPROFEN 400 MG TABLET (FP) PO PRN (21:32)
[2019-06-01] MEDS ORDERED: NICOTINE POLACRILEX 2 MG GUM BUC PRN (21:32)
[2019-06-01] MEDS ORDERED: MAG HYDROX/AL HYDROX/SIMETH 30 ML UNIT-DOSE CUP PO PRN (21:32)
[2019-06-01] MEDS: THIAMINE HCL 100 MG TABLET (FP) PO SCH (22:37)
[2019-06-01] MEDS: GABAPENTIN 300 MG CAPSULE (FP) PO SCH (22:37)
[2019-06-01] MEDS: chlordiazePOXIDE HCL 25 MG CAPSULE PO SCH (22:37)
[2019-06-01] MEDS: guaiFENesin 200 MG/10 ML 10 ML UNIT-DOSE CUPS PO SCH (23:04)
[2019-06-02] MEDS: guaiFENesin 200 MG/10 ML 10 ML UNIT-DOSE CUPS PO SCH ×4 (05:10→23:51)
[2019-06-02] MEDS: chlordiazePOXIDE HCL 25 MG CAPSULE PO SCH ×4 (05:11→22:00)
[2019-06-02 09:38] LABS: HEMOGLOBIN 13.1 GM/dL (11.7-16.9); MCHC 33.5 g/dl (32.0-35.9); MEAN CELL VOLUME 95.5 fl (80-96); PLATELET COUNT 239 K/MM3 (134-434); RBC 4.09 M/mm3 (4.00-5.60); WHITE BLOOD COUNT 7.5 K/mm3 (4.0-10.0)
[2019-06-02 09:57] LABS: ALBUMIN 3.4 g/dl (3.4-5.0); BILIRUBIN,TOTAL 0.7 mg/dL (0.2-1); BLOOD UREA NITROGEN 10.2 mg/dL (7-18); CALCIUM 8.7 mg/dL (8.5-10.1); CREATININE 0.8 mg/dL (0.55-1.3); POTASSIUM 3.1 mmol/L (3.5-5.1)
[2019-06-02] MEDS: NICOTINE 21 MG/24 HOURS TOPICAL PATCH TD SCH (10:17)
[2019-06-02] MEDS: GABAPENTIN 300 MG CAPSULE (FP) PO SCH ×2 (10:17→21:58)
[2019-06-02] MEDS: PRENATAL VITAMINS W/ FOLIC ACID TABLET (FP) PO SCH (10:17)
[2019-06-02 10:42] LABS: PH,URINE 6.5 (5.0-8.0); URINE APPEARANCE CLEAR; URINE BILIRUBIN NEGATIVE (NEGATIVE); URINE COLOR YELLOW; URINE GLUCOSE (UA) NEGATIVE (NEGATIVE); URINE KETONE NEGATIVE (NEGATIVE); URINE LEUK ESTERASE NEGATIVE (NEGATIVE); URINE NITRITE NEGATIVE (NEGATIVE); URINE PROTEIN NEGATIVE (NEGATIVE)
--- NOTE | 2019-06-02 11:21 | PN ---
S CIWA - CIWA Score Nausea/Vomitin Muscle Tremors: 2 Anxiety: 2 Agitation: 2 Paroxysmal Sweats: 2 Orientation: 0-Oriented Tacttile Disturbances: 2-Mild Itch/Numbness/Burn Auditory Disturbances: 0-None Visual Disturbances: 0-None Headache: 1-Very Mild CIWA-Ar Total Score: 13 BHS Progress Note (SOAP) Subjective: interrupted sleep, sweats, shakes Objective: 06/02/19 11:18 Vital Signs Temperature 97.7 F 06/02/19 09:13 Pulse Rate 69 06/02/19 09:13 Respiratory Rate 18 06/02/19 09:13 Blood Pressure 145/94 06/02/19 09:13 O2 Sat by Pulse Oximetry (%) Laboratory Tests 06/02/19 06/02/19 06/02/19 07:50 07:50 07:50 WBC 7.5 RBC 4.09 Hgb 13.1 Hct 39.0 MCV 95.5 MCH 32.0 MCHC 33.5 RDW 14.0 Plt Count 239 MPV 9.0 Sodium 142 Potassium 3.1 L Chloride 104 Carbon Dioxide 29 Anion Gap 9 BUN 10.2 Creatinine 0.8 Est GFR (CKD-EPI)AfAm 123.29 Est GFR (CKD-EPI)NonAf 106.38 Random Glucose 111 H Calcium 8.7 Total Bilirubin 0.7 AST 58 H ALT 57 Alkaline Phosphatase 104 Total Protein 7.0 Albumin 3.4 Urine Color Yellow Urine Appearance Clear Urine pH 6.5 Ur Specific [place] 1.013 Urine Protein Negative Urine Glucose (UA) Negative Urine Ketones Negative Urine Blood Negative Urine Nitrite Negative Urine Bilirubin Negative Urine Urobilinogen 1.0 Ur Leukocyte Esterase Negative pt lying in bed appearing tired, doesn't want to get out of bed. Assessment: 06/02/19 11:21 withdrawal sx's hypokalemia hyperglycemia - glucose 111 elevated sgot 58 Plan: cont. detox increase fluids kcl 40meg bid x 1 day bgm fasing
[2019-06-02] MEDS ORDERED: POTASSIUM CHLORIDE ORAL LIQUID 20 MEQ/15 ML PO SCH ×2 (12:04→22:00)
[2019-06-02 12:34] LABS: RPR REACTIVE 1:2 (NONREACTIVE)
[2019-06-02 12:35] LABS: TREPONEMA ANTIBODY PREVIOUSLY REACTIVE (NONREACTIVE)
[2019-06-02] MEDS: POTASSIUM CHLORIDE ORAL LIQUID 20 MEQ/15 ML PO SCH ×2 (14:23→17:46)
[2019-06-02] MEDS: THIAMINE HCL 100 MG TABLET (FP) PO SCH (21:58)
[2019-06-02] MEDS: MELATONIN 5 MG TABLETS PO PRN (21:59)
[2019-06-03] MEDS: chlordiazePOXIDE HCL 25 MG CAPSULE PO SCH ×4 (05:59→22:06)
[2019-06-03] MEDS: guaiFENesin 200 MG/10 ML 10 ML UNIT-DOSE CUPS PO SCH ×3 (06:01→17:32)
[2019-06-03] MEDS: NICOTINE 21 MG/24 HOURS TOPICAL PATCH TD SCH (10:25)
[2019-06-03] MEDS: GABAPENTIN 300 MG CAPSULE (FP) PO SCH ×2 (11:06→21:42)
[2019-06-03] MEDS: PRENATAL VITAMINS W/ FOLIC ACID TABLET (FP) PO SCH (11:06)
--- NOTE | 2019-06-03 12:37 | PN ---
S CIWA - CIWA Score Nausea/Vomitin-Mild Nausea/No Vomiting Muscle Tremors: 2 Anxiety: 3 Agitation: 1-Slight > Activity Paroxysmal Sweats: 2 Orientation: 0-Oriented Tacttile Disturbances: 1-Very Mild Itch/Numbness Auditory Disturbances: 0-None Visual Disturbances: 1-Very Mild Sensitivity Headache: 1-Very Mild CIWA-Ar Total Score: 12 BHS Progress Note (SOAP) Subjective: c/o of body aches, chills, interrupted sleep, anxiety Objective: 06/03/19 12:37 Vital Signs Temperature 98.1 F 06/03/19 09:48 Pulse Rate 86 06/03/19 09:48 Respiratory Rate 16 06/03/19 09:48 Blood Pressure 144/97 06/03/19 09:48 O2 Sat by Pulse Oximetry (%) Laboratory Last Values WBC 7.5 K/mm3 (4.0-10.0) 06/02/19 07:50 RBC 4.09 M/mm3 (4.00-5.60) 06/02/19 07:50 Hgb 13.1 GM/dL (11.7-16.9) 06/02/19 07:50 Hct 39.0 % (35.4-49) 06/02/19 07:50 MCV 95.5 fl (80-96) 06/02/19 07:50 MCH 32.0 pg (25.7-33.7) 06/02/19 07:50 MCHC 33.5 g/dl (32.0-35.9) 06/02/19 07:50 RDW 14.0 % (11.9-15.9) 06/02/19 07:50 Plt Count 239 K/MM3 (134-434) 06/02/19 07:50 MPV 9.0 fl (7.5-11.1) 06/02/19 07:50 Sodium 142 mmol/L (136-145) 06/02/19 07:50 Potassium 3.1 mmol/L (3.5-5.1) L 06/02/19 07:50 Chloride 104 mmol/L (98-107) 06/02/19 07:50 Carbon Dioxide 29 mmol/L (21-32) 06/02/19 07:50 Anion Gap 9 MMOL/L (8-16) 06/02/19 07:50 BUN 10.2 mg/dL (7-18) 06/02/19 07:50 Creatinine 0.8 mg/dL (0.55-1.3) 06/02/19 07:50 Est GFR (CKD-EPI)AfAm 123.29 06/02/19 07:50 Est GFR (CKD-EPI)NonAf 106.38 06/02/19 07:50 POC Glucometer 134 UNITS (80-120) 06/03/19 07:32 Random Glucose 111 mg/dL (74-106) H 06/02/19 07:50 Calcium 8.7 mg/dL (8.5-10.1) 06/02/19 07:50 Total Bilirubin 0.7 mg/dL (0.2-1) 06/02/19 07:50 AST 58 U/L (15-37) H 06/02/19 07:50 ALT 57 U/L (13-61) 06/02/19 07:50 Alkaline Phosphatase 104 U/L (45-117) 06/02/19 07:50 Total Protein 7.0 g/dl (6.4-8.2) 06/02/19 07:50 Albumin 3.4 g/dl (3.4-5.0) 06/02/19 07:50 Urine Color Yellow 06/02/19 07:50 Urine Appearance Clear 06/02/19 07:50 Urine pH 6.5 (5.0-8.0) 06/02/19 07:50 Ur Specific [place] 1.013 (1.010-1.035) 06/02/19 07:50 Urine Protein Negative (NEGATIVE) 06/02/19 07:50 Urine Glucose (UA) Negative (NEGATIVE) 06/02/19 07:50 Urine Ketones Negative (NEGATIVE) 06/02/19 07:50 Urine Blood Negative (NEGATIVE) 06/02/19 07:50 Urine Nitrite Negative (NEGATIVE) 06/02/19 07:50 Urine Bilirubin Negative (NEGATIVE) 06/02/19 07:50 Urine Urobilinogen 1.0 mg/dL (0.2-1.0) 06/02/19 07:50 Ur Leukocyte Esterase Negative (NEGATIVE) 06/02/19 07:50 RPR Titer Reactive 1:2 (NONREACTIVE) H 06/02/19 07:50 T.pallidum Ab (MHA) Previously reactive (NONREACTIVE) 06/02/19 07:50 labs reviewed Assessment: 06/03/19 12:38 Aox3 no acute distress no adventitious breath sounds full ROM no gait disturbance, ambulating in the unit withdrawal sx Plan: increase PO fluids repeat K+ D/C acetaminophen continue detox continue to monitor
[2019-06-03] MEDS: MELATONIN 5 MG TABLETS PO PRN (21:43)
[2019-06-03] MEDS: THIAMINE HCL 100 MG TABLET (FP) PO SCH (21:43)
[2019-06-04] MEDS ORDERED: chlordiazePOXIDE HCL 10 MG CAPSULE PO PRN
[2019-06-04] MEDS: guaiFENesin 200 MG/10 ML 10 ML UNIT-DOSE CUPS PO SCH ×4 (00:17→23:37)
[2019-06-04] MEDS: chlordiazePOXIDE HCL 10 MG CAPSULE PO SCH ×4 (05:41→22:07)
--- NOTE | 2019-06-04 09:44 | PN ---
[facility] CIWA - CIWA Score Nausea/Vomitin-No Nausea/No Vomiting Muscle Tremors: 3 Anxiety: 3 Agitation: 0-Normal Activity Paroxysmal Sweats: 2 Orientation: 0-Oriented Tacttile Disturbances: 1-Very Mild Itch/Numbness Auditory Disturbances: 0-None Visual Disturbances: 1-Very Mild Sensitivity Headache: 1-Very Mild CIWA-Ar Total Score: 11 S Progress Note (SOAP) Subjective: c/o of back pain, hand tingling, interrupted sleep, chills, sweats Objective: 06/04/19 09:42 Vital Signs Temperature 97.7 F 06/04/19 06:25 Pulse Rate 57 L 06/04/19 06:25 Respiratory Rate 18 06/04/19 06:25 Blood Pressure 166/88 06/04/19 06:25 O2 Sat by Pulse Oximetry (%) Laboratory Last Values WBC 7.5 K/mm3 (4.0-10.0) 06/02/19 07:50 RBC 4.09 M/mm3 (4.00-5.60) 06/02/19 07:50 Hgb 13.1 GM/dL (11.7-16.9) 06/02/19 07:50 Hct 39.0 % (35.4-49) 06/02/19 07:50 MCV 95.5 fl (80-96) 06/02/19 07:50 MCH 32.0 pg (25.7-33.7) 06/02/19 07:50 MCHC 33.5 g/dl (32.0-35.9) 06/02/19 07:50 RDW 14.0 % (11.9-15.9) 06/02/19 07:50 Plt Count 239 K/MM3 (134-434) 06/02/19 07:50 MPV 9.0 fl (7.5-11.1) 06/02/19 07:50 Sodium 142 mmol/L (136-145) 06/02/19 07:50 Potassium 4.2 mmol/L (3.5-5.1) 06/03/19 13:55 Chloride 104 mmol/L (98-107) 06/02/19 07:50 Carbon Dioxide 29 mmol/L (21-32) 06/02/19 07:50 Anion Gap 9 MMOL/L (8-16) 06/02/19 07:50 BUN 10.2 mg/dL (7-18) 06/02/19 07:50 Creatinine 0.8 mg/dL (0.55-1.3) 06/02/19 07:50 Est GFR (CKD-EPI)AfAm 123.29 06/02/19 07:50 Est GFR (CKD-EPI)NonAf 106.38 06/02/19 07:50 POC Glucometer 105 UNITS (80-120) 06/04/19 05:40 Random Glucose 111 mg/dL (74-106) H 06/02/19 07:50 Calcium 8.7 mg/dL (8.5-10.1) 06/02/19 07:50 Total Bilirubin 0.7 mg/dL (0.2-1) 06/02/19 07:50 AST 58 U/L (15-37) H 06/02/19 07:50 ALT 57 U/L (13-61) 06/02/19 07:50 Alkaline Phosphatase 104 U/L (45-117) 06/02/19 07:50 Total Protein 7.0 g/dl (6.4-8.2) 06/02/19 07:50 Albumin 3.4 g/dl (3.4-5.0) 06/02/19 07:50 Urine Color Yellow 06/02/19 07:50 Urine Appearance Clear 06/02/19 07:50 Urine pH 6.5 (5.0-8.0) 06/02/19 07:50 Ur Specific [place] 1.013 (1.010-1.035) 06/02/19 07:50 Urine Protein Negative (NEGATIVE) 06/02/19 07:50 Urine Glucose (UA) Negative (NEGATIVE) 06/02/19 07:50 Urine Ketones Negative (NEGATIVE) 06/02/19 07:50 Urine Blood Negative (NEGATIVE) 06/02/19 07:50 Urine Nitrite Negative (NEGATIVE) 06/02/19 07:50 Urine Bilirubin Negative (NEGATIVE) 06/02/19 07:50 Urine Urobilinogen 1.0 mg/dL (0.2-1.0) 06/02/19 07:50 Ur Leukocyte Esterase Negative (NEGATIVE) 06/02/19 07:50 RPR Titer Reactive 1:2 (NONREACTIVE) H 06/02/19 07:50 T.pallidum Ab (MHA) Previously reactive (NONREACTIVE) 06/02/19 07:50 Assessment: 06/04/19 09:43 Aox3 no acute distress + back pain EENT WNL Full ROM, ambulating in unit withdrawal sx Plan: increase fluids continue detox continue to monitor
[2019-06-04] MEDS: GABAPENTIN 300 MG CAPSULE (FP) PO SCH ×2 (10:37→22:06)
[2019-06-04] MEDS: NICOTINE 21 MG/24 HOURS TOPICAL PATCH TD SCH (10:37)
[2019-06-04] MEDS: PRENATAL VITAMINS W/ FOLIC ACID TABLET (FP) PO SCH (10:37)
[2019-06-04] MEDS: THIAMINE HCL 100 MG TABLET (FP) PO SCH (22:06)
[2019-06-04] MEDS: MELATONIN 5 MG TABLETS PO PRN (22:08)
[2019-06-05] MEDS ORDERED: chlordiazePOXIDE HCL 10 MG CAPSULE PO SCH (05:00)
[2019-06-05] MEDS: guaiFENesin 200 MG/10 ML 10 ML UNIT-DOSE CUPS PO SCH ×2 (06:01→13:19)
--- NOTE | 2019-06-05 10:00 | DS ---
[facility] Detox Discharge Summary Admission Date: 06/01/19 Discharge Date: 06/05/19 - History Present History: Alcohol Dependence, Cannabis Dependence - Physical Exam Results Vital Signs: Vital Signs Temperature 96.4 F L 06/05/19 09:43 Pulse Rate 80 06/05/19 09:43 Respiratory Rate 18 06/05/19 09:43 Blood Pressure 139/98 06/05/19 09:43 O2 Sat by Pulse Oximetry (%) Pertinent Admission Physical Exam Findings: pt arrived in withdrawals Laboratory Tests 06/02/19 06/02/19 06/02/19 07:50 07:50 07:50 WBC 7.5 RBC 4.09 Hgb 13.1 Hct 39.0 MCV 95.5 MCH 32.0 MCHC 33.5 RDW 14.0 Plt Count 239 MPV 9.0 Sodium 142 Potassium 3.1 L Chloride 104 Carbon Dioxide 29 Anion Gap 9 BUN 10.2 Creatinine 0.8 Est GFR (CKD-EPI)AfAm 123.29 Est GFR (CKD-EPI)NonAf 106.38 POC Glucometer Random Glucose 111 H Calcium 8.7 Total Bilirubin 0.7 AST 58 H ALT 57 Alkaline Phosphatase 104 Total Protein 7.0 Albumin 3.4 Urine Color Urine Appearance Urine pH Ur Specific [place] Urine Protein Urine Glucose (UA) Urine Ketones Urine Blood Urine Nitrite Urine Bilirubin Urine Urobilinogen Ur Leukocyte Esterase RPR Titer Reactive 1:2 H T.pallidum Ab (MHA) Previously reactive 06/02/19 06/03/19 06/03/19 07:50 07:32 13:55 WBC RBC Hgb Hct MCV MCH MCHC RDW Plt Count MPV Sodium Potassium 4.2 Chloride Carbon Dioxide Anion Gap BUN Creatinine Est GFR (CKD-EPI)AfAm Est GFR (CKD-EPI)NonAf POC Glucometer 134 Random Glucose Calcium Total Bilirubin AST ALT Alkaline Phosphatase Total Protein Albumin Urine Color Yellow Urine Appearance Clear Urine pH 6.5 Ur Specific [place] 1.013 Urine Protein Negative Urine Glucose (UA) Negative Urine Ketones Negative Urine Blood Negative Urine Nitrite Negative Urine Bilirubin Negative Urine Urobilinogen 1.0 Ur Leukocyte Esterase Negative RPR Titer T.pallidum Ab (MHA) 06/04/19 06/05/19 05:40 06:35 WBC RBC Hgb Hct MCV MCH MCHC RDW Plt Count MPV Sodium Potassium Chloride Carbon Dioxide Anion Gap BUN Creatinine Est GFR (CKD-EPI)AfAm Est GFR (CKD-EPI)NonAf POC Glucometer 105 156 Random Glucose Calcium Total Bilirubin AST ALT Alkaline Phosphatase Total Protein Albumin Urine Color Urine Appearance Urine pH Ur Specific [place] Urine Protein Urine Glucose (UA) Urine Ketones Urine Blood Urine Nitrite Urine Bilirubin Urine Urobilinogen Ur Leukocyte Esterase RPR Titer T.pallidum Ab (MHA) aaox3 ambulating no acute distress no s/s of withdrawals - Treatment Hospital Course: Detox Protocol Followed, Detoxed Safely, Responded well, Discharged Condition Good, Rehab Referral Accepted Patient has Accepted a Rehab Referral to: [facility] - Medication Discharge Medications: Ambulatory Orders Gabapentin [Neurontin -] 600 mg PO BID 06/01/19 - Diagnosis (1) Alcohol dependence with uncomplicated withdrawal Current Visit: Yes Status: Chronic (2) History of fusion of spine for scoliosis Current Visit: Yes Status: Chronic (3) Neuropathy Current Visit: Yes Status: Chronic (4) Nicotine dependence Current Visit: Yes Status: Chronic Qualifiers: Nicotine product type: cigarettes Substance use status: uncomplicated Qualified Code(s): F17.210 - Nicotine dependence, cigarettes, uncomplicated (5) Perforated nasal septum Current Visit: Yes Status: Chronic (6) Syphilis contact, treated Current Visit: No Status: Chronic (7) Biceps tendon rupture, traumatic Current Visit: Yes Status: Suspected Qualifiers: Encounter type: sequela Laterality: left Qualified Code(s): S46.212S - Strain of muscle, fascia and tendon of other parts of biceps, left arm, sequela (8) Elevated LFTs Current Visit: Yes Status: Acute (9) Substance induced mood disorder Current Visit: No Status: Acute (10) Substance-induced sleep disorder Current Visit: No Status: Acute (11) Cannabis use, uncomplicated Current Visit: No Status: Chronic (12) History of scoliosis Current Visit: No Status: Chronic - AMA Did Patient Leave Against Medical Advice: No
[2019-06-05] MEDS: PRENATAL VITAMINS W/ FOLIC ACID TABLET (FP) PO SCH (10:39)
[2019-06-05] MEDS: GABAPENTIN 300 MG CAPSULE (FP) PO SCH (10:39)
[2019-06-05] MEDS: NICOTINE 21 MG/24 HOURS TOPICAL PATCH TD SCH (10:45)
[2019-06-05 13:37] VITALS: BP 156/101; PULSE 87; TEMP 97.2
[2019-06-06] MEDS ORDERED: chlordiazePOXIDE HCL 10 MG CAPSULE PO ONE (05:00)
== END 2019-06-05 16:37 | disposition other institution (70) | DRG 775 ==
LOC: YASAS 16:09 → Y6N 21:36
PROVIDERS: ADMIT Allergy & Immunology; ATTEND Allergy & Immunology
PROC: HZ2ZZZZ Detoxification Services for Substance Abuse Treatment (ICD-10-PCS; principal; 2019-06-01)
DX: F10.230 Alcohol dependence with withdrawal, uncomplicated (principal); F12.20 Cannabis dependence, uncomplicated; F17.210 Nicotine dependence, cigarettes, uncomplicated; F19.282 Other psychoactive substance dependence with psychoactive substance-induced sleep disorder; F19.24 Other psychoactive substance dependence with psychoactive substance-induced mood disorder; G62.9 Polyneuropathy, unspecified; H55.00 Unspecified nystagmus; E87.6 Hypokalemia; J34.89 Other specified disorders of nose and nasal sinuses; R73.9 Hyperglycemia, unspecified; E78.00 Pure hypercholesterolemia, unspecified; Z86.19 Personal history of other infectious and parasitic diseases; Z20.2 Contact with and (suspected) exposure to infections with a predominantly sexual mode of transmission; Z98.1 Arthrodesis status; Z87.39 Personal history of other diseases of the musculoskeletal system and connective tissue
CPT/HCPCS: 36415; 80053; 81003; 82962; 84132; 85027; 86593; 86780

== ENCOUNTER 2019-06-05 16:47 | Inpatient (IN) | payer OTHER ==
--- NOTE | 2019-06-05 15:29 | HP ---
[facility] Rehab Assess/Revision - Admission History Admitted to Rehab from[facility] - Findings Detox History & Physical reviewed: Yes Concur with findings: Yes Inpatient Rehab Admission - Rehab Decision to Admit Inpatient rehab admission?: Yes - Initial Determination Are CD services needed?: Yes Free of communicable disease: Yes Not in need of hospitalization: Yes - Rehab Admission Criteria Previous failed treatment: Yes Poor recovery environment: Yes Comorbidities: Yes Lacks judgement: Yes Patient is meeting Inpatient Rehab admission criteria:: Yes
[~2019-06-05 16:47] MED LIST: ACETAMINOPHEN 325 MG TABLET (FP) PO PRN; IBUPROFEN 400 MG TABLET (FP) PO PRN; LOPERAMIDE HCL 2 MG CAPSULE PO PRN; MAG HYDROX/AL HYDROX/SIMETH 30 ML UNIT-DOSE CUP PO PRN; MAGNESIUM CITRATE 300 ML BOTTLE PO PRN; MAGNESIUM HYDROX 2400MG/30ML ORAL SUSPENSION 30 ML CUP PO PRN; MENTHOL/PHENOL 1 EACH UD MM PRN; NICOTINE POLACRILEX 4 MG GUM BUC PRN; P-EPHED 60MG/TRIPROLIDI 2.5MG TABLET PO PRN
[2019-06-05] MEDS: MELATONIN 5 MG TABLETS PO PRN (21:06)
[2019-06-05] MEDS: THIAMINE HCL 100 MG TABLET (FP) PO SCH (21:06)
[2019-06-06] MEDS: NICOTINE 21 MG/24 HOURS TOPICAL PATCH TD SCH (10:26)
[2019-06-06] MEDS: PRENATAL VITAMINS W/ FOLIC ACID TABLET (FP) PO SCH (10:26)
--- NOTE | 2019-06-06 10:56 | PN ---
S Progress Note Note: Patient reports home medication neurontin 600mg BID not ordered on admission. Same ordered for back/generalized pain.
[2019-06-06] MEDS: GABAPENTIN 300 MG CAPSULE (FP) PO SCH ×2 (11:50→21:48)
[2019-06-06] MEDS: THIAMINE HCL 100 MG TABLET (FP) PO SCH (21:48)
[2019-06-06] MEDS: MELATONIN 5 MG TABLETS PO PRN (21:49)
[2019-06-06] MEDS: guaiFENesin 200 MG/10 ML 10 ML UNIT-DOSE CUPS PO PRN (21:50)
[2019-06-07] MEDS: hydrOXYzine PAMOATE 50 MG CAPSULE (FP) PO PRN (10:17)
[2019-06-07] MEDS: GABAPENTIN 300 MG CAPSULE (FP) PO SCH ×2 (10:17→21:48)
[2019-06-07] MEDS: PRENATAL VITAMINS W/ FOLIC ACID TABLET (FP) PO SCH (10:17)
[2019-06-07] MEDS: NICOTINE 21 MG/24 HOURS TOPICAL PATCH TD SCH (10:18)
[2019-06-07] MEDS: guaiFENesin 200 MG/10 ML 10 ML UNIT-DOSE CUPS PO PRN (10:19)
[2019-06-07 11:21] LABS: BLOOD UREA NITROGEN 8.9 mg/dL (7-18); CALCIUM 9.4 mg/dL (8.5-10.1); CREATININE 0.7 mg/dL (0.55-1.3); POTASSIUM 4.4 mmol/L (3.5-5.1)
[2019-06-07] MEDS: MELATONIN 5 MG TABLETS PO PRN (21:48)
[2019-06-07] MEDS: THIAMINE HCL 100 MG TABLET (FP) PO SCH (21:49)
[2019-06-08] MEDS: guaiFENesin 200 MG/10 ML 10 ML UNIT-DOSE CUPS PO PRN (07:02)
[2019-06-08] MEDS: GABAPENTIN 300 MG CAPSULE (FP) PO SCH ×2 (10:43→21:17)
[2019-06-08] MEDS: PRENATAL VITAMINS W/ FOLIC ACID TABLET (FP) PO SCH (10:43)
[2019-06-08] MEDS: NICOTINE 21 MG/24 HOURS TOPICAL PATCH TD SCH (10:44)
[2019-06-08] MEDS: THIAMINE HCL 100 MG TABLET (FP) PO SCH (21:18)
[2019-06-08] MEDS: MELATONIN 5 MG TABLETS PO PRN (21:18)
[2019-06-09] MEDS: NICOTINE 21 MG/24 HOURS TOPICAL PATCH TD SCH (10:45)
[2019-06-09] MEDS: GABAPENTIN 300 MG CAPSULE (FP) PO SCH ×2 (10:45→22:13)
[2019-06-09] MEDS: PRENATAL VITAMINS W/ FOLIC ACID TABLET (FP) PO SCH (10:46)
[2019-06-09] MEDS: MELATONIN 5 MG TABLETS PO PRN (22:13)
[2019-06-09] MEDS: THIAMINE HCL 100 MG TABLET (FP) PO SCH (22:14)
[2019-06-09] MEDS: hydrOXYzine PAMOATE 50 MG CAPSULE (FP) PO PRN (22:14)
--- NOTE | 2019-06-10 10:48 | PN ---
[facility] Progress Note Note: Pt is requesting for Gabapentin to be ordered as three times daily. Pt is currently taking Gabapentin 600 mg po BID but not verifiable. However, pt has taking gabapentin 300 mg po TID in past admissions here. Reports he has screws in his back and takes it for chronic pain management. Vital Signs (72 hours) 06/08/19 06/08/19 06/08/19 00:30 03:30 07:25 Temperature 97.8 F Pulse Rate 122 H Respiratory 18 18 18 Rate Blood Pressure 123/82 06/09/19 06/09/19 06/09/19 00:30 03:30 06:56 Temperature 97.6 F Pulse Rate 83 Respiratory 18 18 18 Rate Blood Pressure 125/86 06/10/19 06/10/19 06/10/19 00:30 03:30 07:40 Temperature 97.4 F L Pulse Rate 101 H Respiratory 18 18 18 Rate Blood Pressure 119/76 D/w pt will change to Gabapentin 300 mg po tid, first dose now. Increase po fluids. Pt agreed to poc
[2019-06-10] MEDS: NICOTINE 21 MG/24 HOURS TOPICAL PATCH TD SCH (11:03)
[2019-06-10] MEDS: PRENATAL VITAMINS W/ FOLIC ACID TABLET (FP) PO SCH (11:03)
[2019-06-10] MEDS: GABAPENTIN 300 MG CAPSULE (FP) PO SCH ×2 (11:04→21:24)
[2019-06-10] MEDS ORDERED: GABAPENTIN 300 MG CAPSULE (FP) PO ONE ×2 (11:15→12:00)
[2019-06-10] MEDS ORDERED: GABAPENTIN 300 MG CAPSULE (FP) PO SCH (14:00)
[2019-06-10] MEDS: MELATONIN 5 MG TABLETS PO PRN (21:25)
[2019-06-10] MEDS: THIAMINE HCL 100 MG TABLET (FP) PO SCH (21:25)
[2019-06-11] MEDS: NICOTINE 21 MG/24 HOURS TOPICAL PATCH TD SCH (10:54)
[2019-06-11] MEDS: GABAPENTIN 300 MG CAPSULE (FP) PO SCH ×2 (10:54→22:03)
[2019-06-11] MEDS: PRENATAL VITAMINS W/ FOLIC ACID TABLET (FP) PO SCH (10:54)
[2019-06-11] MEDS: MELATONIN 5 MG TABLETS PO PRN (22:03)
[2019-06-11] MEDS: THIAMINE HCL 100 MG TABLET (FP) PO SCH (22:03)
[2019-06-12] MEDS: GABAPENTIN 300 MG CAPSULE (FP) PO SCH ×2 (10:55→21:11)
[2019-06-12] MEDS: NICOTINE 21 MG/24 HOURS TOPICAL PATCH TD SCH (10:55)
[2019-06-12] MEDS: PRENATAL VITAMINS W/ FOLIC ACID TABLET (FP) PO SCH (10:55)
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
[2019-06-12] MEDS: THIAMINE HCL 100 MG TABLET (FP) PO SCH (21:11)
[2019-06-12] MEDS: MELATONIN 5 MG TABLETS PO PRN (21:12)
[2019-06-12] MEDS: SUVOREXANT 10 MG TABLET PO PRN (21:12)
[2019-06-13] MEDS: GABAPENTIN 300 MG CAPSULE (FP) PO SCH ×2 (10:14→21:49)
[2019-06-13] MEDS: PRENATAL VITAMINS W/ FOLIC ACID TABLET (FP) PO SCH (10:14)
[2019-06-13] MEDS: NICOTINE 21 MG/24 HOURS TOPICAL PATCH TD SCH (10:14)
[2019-06-13] MEDS: THIAMINE HCL 100 MG TABLET (FP) PO SCH (21:49)
[2019-06-13] MEDS: hydrOXYzine PAMOATE 50 MG CAPSULE (FP) PO PRN (21:50)
[2019-06-14] MEDS: GABAPENTIN 300 MG CAPSULE (FP) PO SCH ×2 (10:30→21:18)
[2019-06-14] MEDS: NICOTINE 21 MG/24 HOURS TOPICAL PATCH TD SCH (10:31)
[2019-06-14] MEDS: PRENATAL VITAMINS W/ FOLIC ACID TABLET (FP) PO SCH (10:31)
[2019-06-14] MEDS: SUVOREXANT 10 MG TABLET PO PRN (21:18)
[2019-06-14] MEDS: THIAMINE HCL 100 MG TABLET (FP) PO SCH (21:18)
[2019-06-15] MEDS: NICOTINE 21 MG/24 HOURS TOPICAL PATCH TD SCH (10:30)
[2019-06-15] MEDS: PRENATAL VITAMINS W/ FOLIC ACID TABLET (FP) PO SCH (10:30)
[2019-06-15] MEDS: GABAPENTIN 300 MG CAPSULE (FP) PO SCH ×2 (10:30→22:02)
[2019-06-15] MEDS: THIAMINE HCL 100 MG TABLET (FP) PO SCH (22:02)
[2019-06-15] MEDS: hydrOXYzine PAMOATE 50 MG CAPSULE (FP) PO PRN (22:04)
[2019-06-16] MEDS: PRENATAL VITAMINS W/ FOLIC ACID TABLET (FP) PO SCH (10:51)
[2019-06-16] MEDS: GABAPENTIN 300 MG CAPSULE (FP) PO SCH ×2 (10:52→21:56)
[2019-06-16] MEDS: NICOTINE 21 MG/24 HOURS TOPICAL PATCH TD SCH (10:52)
[2019-06-16] MEDS: THIAMINE HCL 100 MG TABLET (FP) PO SCH (21:56)
[2019-06-16] MEDS: SUVOREXANT 10 MG TABLET PO PRN (21:57)
[2019-06-17] MEDS: PRENATAL VITAMINS W/ FOLIC ACID TABLET (FP) PO SCH (11:16)
[2019-06-17] MEDS: NICOTINE 21 MG/24 HOURS TOPICAL PATCH TD SCH (11:16)
[2019-06-17] MEDS: GABAPENTIN 300 MG CAPSULE (FP) PO SCH ×2 (11:16→21:52)
[2019-06-17] MEDS: SUVOREXANT 10 MG TABLET PO PRN (21:51)
[2019-06-17] MEDS: THIAMINE HCL 100 MG TABLET (FP) PO SCH (21:52)
[2019-06-18] MEDS: PRENATAL VITAMINS W/ FOLIC ACID TABLET (FP) PO SCH (11:17)
[2019-06-18] MEDS: GABAPENTIN 300 MG CAPSULE (FP) PO SCH ×2 (11:17→21:57)
[2019-06-18] MEDS: NICOTINE 21 MG/24 HOURS TOPICAL PATCH TD SCH (11:18)
--- NOTE | 2019-06-18 13:43 | DS ---
[facility] Rehab Discharge Summary - [facility] Rehab Discharge Summary Admission Date: 06/05/19 Discharge Date: 06/19/19 - History Present History: Alcohol dependence Additional Comments: Pt is a 48 y/o male with a hx of ANTONIA admitted to rehab and scheduled for discharge on 06/19/19. Pt met with his counselor for aftercare planning and has been referred to [facility] for CD treatment. Pt will follow up with primary care at [facility]. Pt reports he has a pain management provider on [address] [place] [address] but does not remember the name. Pertinent Past History: Eczema Chronic Back Pain Scoliosis s/p spinal fusion surgery Neuropathy Perforated nasal septum - Discharge Physical Exam Vital Signs: Vital Signs Temperature 97.2 F L 06/18/19 08:09 Pulse Rate 71 06/18/19 08:09 Respiratory Rate 18 06/18/19 08:09 Blood Pressure 140/84 06/18/19 08:09 O2 Sat by Pulse Oximetry (%) Alert o x 3 nad oob ambulating with steady gait cardiac:s1 s2, rrr lungs:cta,james. abdomen:soft,+bs,nt,nd extremities:no edema,full ROM,right hendrix with small area of dry scaly darkened lichenified patch of skin. Pertinent Admission Physical Exam Findings: Laboratory Tests 06/07/19 08:00 Sodium 140 Potassium 4.4 Chloride 102 Carbon Dioxide 28 Anion Gap 10 BUN 8.9 Creatinine 0.7 Est GFR (CKD-EPI)AfAm 130.25 Est GFR (CKD-EPI)NonAf 112.38 Random Glucose 88 Calcium 9.4 - Treatment Discharge Condition: Discharge condition good Hospital Course: Rehabilitated safely and responded well. CD aftercare referral accepted. - Medication Discharge Medications: Ambulatory Orders Gabapentin 600 mg PO BID #14 tablet 06/18/19 Hydrocortisone 1% Cream [Hytone 1% Cream -] 1 applic TP BID PRN #1 tube - Medication-Assisted Treatment (MAT) Medication-Assisted Treatment (MAT): No - Discharge Instructions Diet, activity, other medical instructions: Diet:Regular Activity: oob ad rosemary Other medical instructions:Follow up with primary care at [facility]/pain management provider within 1-2 weeks after discharge. Follow up with CD aftercare with [facility] outpt program as recommended. - Diagnosis (1) Alcohol dependence Status: Chronic Qualifiers: Substance use status: uncomplicated Qualified Code(s): F10.20 - Alcohol dependence, uncomplicated (2) Cannabis use, uncomplicated Status: Chronic (3) History of fusion of spine for scoliosis Status: Chronic (4) History of scoliosis Status: Chronic (5) Neuropathy Status: Chronic (6) Nicotine dependence Status: Chronic Qualifiers: Nicotine product type: cigarettes Substance use status: uncomplicated Qualified Code(s): F17.210 - Nicotine dependence, cigarettes, uncomplicated - AMA Did Patient Leave Against Medical Advice: No Additional Comments: Courtesy Rx electronically sent to pt's [facility] pharmacy for pickup.
[2019-06-18] MEDS: SUVOREXANT 10 MG TABLET PO PRN (21:56)
[2019-06-18] MEDS: THIAMINE HCL 100 MG TABLET (FP) PO SCH (21:57)
[2019-06-19 07:33] VITALS: BP 132/72; PULSE 92; TEMP 97.4
[2019-06-19] MEDS: NICOTINE 21 MG/24 HOURS TOPICAL PATCH TD SCH (09:03)
[2019-06-19] MEDS: GABAPENTIN 300 MG CAPSULE (FP) PO SCH (09:03)
[2019-06-19] MEDS: PRENATAL VITAMINS W/ FOLIC ACID TABLET (FP) PO SCH (09:03)
[2019-06-19] MEDS ORDERED: HYDROCORTISONE 1% TOPICAL CREAM 30 GM TUBE TP SCH (10:00)
--- NOTE | 2019-06-19 12:50 | PN ---
S Progress Note Note: pt was discharged today as scheduled. Alert o x 3 nad denies s/h/i Vital Signs - 24 hr 06/19/19 06/19/19 06/19/19 00:30 03:30 07:33 Temperature 97.4 F L Pulse Rate 92 H Respiratory 18 18 18 Rate Blood Pressure 132/72 D/W pt to follow up with Cd aftercare and primary care as recommended. Please see D/C Summary
== END 2019-06-19 09:35 | disposition home or self-care (01) | DRG 772 ==
LOC: YASAS 16:47 → Y5N 17:14
PROVIDERS: ADMIT Neuromusculoskeletal Medicine & OMM; ATTEND Neuromusculoskeletal Medicine & OMM
PROC: HZ42ZZZ Group Counseling for Substance Abuse Treatment, Cognitive-Behavioral (ICD-10-PCS; principal; 2019-06-05)
DX: F10.20 Alcohol dependence, uncomplicated (principal); F12.10 Cannabis abuse, uncomplicated; F17.210 Nicotine dependence, cigarettes, uncomplicated; F10.282 Alcohol dependence with alcohol-induced sleep disorder; F10.24 Alcohol dependence with alcohol-induced mood disorder; G62.9 Polyneuropathy, unspecified; J34.89 Other specified disorders of nose and nasal sinuses; L30.9 Dermatitis, unspecified; M41.9 Scoliosis, unspecified; Z98.1 Arthrodesis status; Z86.19 Personal history of other infectious and parasitic diseases; Z59.0 Homelessness
CPT/HCPCS: 36415; 80048